=== PATIENT | female | born 2000 | race Caucasian/White ===

== ENCOUNTER 2022-01-10 06:22 | Inpatient (IN) ==
[2022-01-10] MEDS ORDERED: PITOCIN ONE ×3 (06:36→18:33)
[2022-01-10] MEDS ORDERED: AMPICILLIN VIAL 2 GRAM ONE (06:36)
[2022-01-10] MEDS ORDERED: BETADINE SOLN ONE (06:37)
[2022-01-10] MEDS ORDERED: D5 1/2 NS 1,000 mL + PITOCIN 20 UNITS/L IV 20 UNITS/1,000 ML BAG IV ONE (06:38)
[2022-01-10] MEDS ORDERED: D5 LR + PITOCIN 10 UNITS/L 10 UNITS/1,000 ML BAG IV ONE (06:38)
[2022-01-10] MEDS: D5 1/2 NS 1,000 ML 1,000 ML IV SCH ×2 (07:00→17:12)
--- NOTE | 2022-01-10 07:35 | DR.OB ---
OB Quick Note - Assessment/Plan Assessment/Plan: L&D 01/10/22 at 7:05am S-No complaint. O-Afebrile,VSS CGK=[id number] with good LTV, +accel, no decel. CTX=none CVX=1cm/50%/-1/VTX AROM with clear fluid. IUPC placed but FSE not able to be placed. A-IUP at 39 1/7 weeks for induction +GBS Rh- GERD P-Begin pitocin induction IV ABX in labor for +GBS Anticipate
[2022-01-10] MEDS ORDERED: PITOCIN IVP ONE (07:53)
[2022-01-10] MEDS ORDERED: NUBAIN INJ 200 MG VIAL MULTIDOSE IVP PRN (07:53)
[2022-01-10] MEDS ORDERED: REGLAN INJ 10 MG VIAL IVP PRN ×2 (07:53→19:20)
[2022-01-10] MEDS ORDERED: D5 LR + PITOCIN 10 UNITS/L 10 UNITS/1,000 ML BAG IV PRN (07:53)
[2022-01-10] MEDS ORDERED: AMPICILLIN VIAL 2 GRAM 2 G in NS 100 ML IV + SPIKE MINIBAG* 100 ML IV SCH (07:53)
[2022-01-10] MEDS ORDERED: PHENERGAN INJ 25 MG IM PRN ×2 (07:53→18:02)
[2022-01-10] MEDS ORDERED: MORPHINE SULFATE INJ 2 MG INJ IVP PRN (07:53)
[2022-01-10] MEDS: AMPICILLIN VIAL 1 GRAM 1 G in NS 50 ML IV + SPIKE MINIBAG* 50 ML IV SCH ×2 (07:57→10:30)
[2022-01-10] MEDS: D5 1/2 NS 1,000 ML 1,000 ML IV ONE (07:58)
[2022-01-10] MEDS: NS 100 ML IV 100 ML ONE ×2 (07:58→07:59)
[2022-01-10] MEDS ORDERED: REGLAN INJ 10 MG VIAL ONE ×2 (09:57→16:32)
[2022-01-10] MEDS ORDERED: STADOL INJ ONE ×2 (09:57→12:43)
[2022-01-10] MEDS: STADOL INJ IVP PRN ×2 (10:00→12:45)
[2022-01-10] MEDS ORDERED: NS 100 ML IV 100 ML ONE ×4 (10:22→16:33)
[2022-01-10] MEDS ORDERED: AMPICILLIN VIAL 1 GRAM ONE ×2 (10:22→14:50)
[2022-01-10] MEDS: VSL#3 PO SCH (11:31)
--- NOTE | 2022-01-10 12:23 | DR.OB ---
OB Quick Note - Assessment/Plan Assessment/Plan: L&D 01/10/22 at 12:15pm Pitocin=16mu/min. Ampicillin S-No complaint. O-Afebrile,VSS [id number] with good LTV, +accel, no decel. CTX=q 1 1/2 to 2 min., about 35-55mmHg CVX=1cm/50%/-1 IUPC replaced. A-IUP at 39 1/7 weeks for induction +GBS GERD Rh- P-Cont. pitocin induction and IV ABX in labor Anticipate
[2022-01-10] MEDS ORDERED: LR 1,000 ML IV 1,000 ML IV ONE ×2 (12:54→16:32)
[2022-01-10] MEDS ORDERED: FENTANYL VIAL INJ 100 mcg ONE ×2 (12:54→17:32)
[2022-01-10] MEDS ORDERED: NAROPIN EPIDURAL 0.2% 100 ML ONE (12:55)
[2022-01-10] MEDS ORDERED: EPHEDRINE SULFATE INJ ONE (13:10)
[2022-01-10] MEDS ORDERED: AMPICILLIN VIAL 1 GRAM 1 G in NS 50 ML IV 50 ML IV SCH (16:00)
[2022-01-10] MEDS ORDERED: ANCEF VIAL 1 GRAM ONE (16:32)
[2022-01-10] MEDS ORDERED: ZOFRAN INJ 4 MG VIAL ONE (16:32)
[2022-01-10] MEDS ORDERED: PEPCID 20 MG VIAL ONE (16:33)
--- NOTE | 2022-01-10 16:57 | DR.OB ---
OB Quick Note - Assessment/Plan Assessment/Plan: L&D 01/10/22 at 4:55pm Pitocin=20mu/min. Ampicillin S-No complaint. s/p epidural. O-Afebrile,VSS [id number] with good LTV, +accel, no decel. CTX=q 1 1/2 to 2 min., about 35-55mmHg CVX=1-2cm/50%/-1 (no change) A-IUP at 39 1/7 weeks with failure to dilate Rh- +GBS GERD P-To C/S
[2022-01-10] MEDS ORDERED: XYLOCAINE-MPF 2% ONE (17:09)
[2022-01-10] MEDS ORDERED: PRECEDEX INJ VIAL IVP ONE (17:13)
[2022-01-10] MEDS ORDERED: MORPHINE SULFATE INJ 10 MG ONE (17:41)
[2022-01-10] MEDS ORDERED: DILAUDID INJ IVP PRN (18:02)
[2022-01-10] MEDS ORDERED: ZOFRAN INJ 4 MG VIAL IVP PRN ×2 (18:02→19:20)
[2022-01-10] MEDS ORDERED: BENADRYL INJ 50 MG VIAL IVP PRN ×2 (18:02→19:20)
[2022-01-10] MEDS ORDERED: DILAUDID INJ ONE (18:10)
[2022-01-10] MEDS ORDERED: TORADOL 30 MG VIAL ONE (18:14)
[2022-01-10] MEDS ORDERED: VERSED ONE (18:19)
[2022-01-10] MEDS ORDERED: NARCAN INJ IVP PRN (19:20)
[2022-01-10] MEDS ORDERED: MYLICON TAB 80 MG CHEW PO PRN (19:20)
[2022-01-10] MEDS ORDERED: ADACEL or BOOSTRIX TDaP VACCINE IM ONE (19:20)
[2022-01-10] MEDS ORDERED: PERCOCET TAB 5/325 MG PO PRN (19:20)
[2022-01-10] MEDS ORDERED: HYPERRHO S/D (or RHOGAM) IM PRN (19:20)
[2022-01-10] MEDS ORDERED: D5 1/2 NS 1,000 ML 1,000 ML with PITOCIN 20 UNITS IV SCH ×2 (19:20)
[2022-01-10] MEDS ORDERED: TORADOL 30 MG VIAL IVP PRN (19:20)
[2022-01-11 05:09] LABS: HEMATOCRIT 21.2 % (36.0-47.0)
[2022-01-11 05:10] LABS: HEMOGLOBIN 7.1 g/dL (12.0-16.0)
[2022-01-11] MEDS ORDERED: MOTRIN TAB 800 MG PO PRN (07:35)
[2022-01-11] MEDS ORDERED: ADACEL or BOOSTRIX TDaP VACCINE IM ONE (09:00)
[2022-01-11] MEDS: PRENATAL PLUS PO SCH (09:11)
[2022-01-11] MEDS: VSL#3 PO SCH (09:11)
[2022-01-11] MEDS: COLACE CAP 100 MG PO SCH ×2 (09:12→21:13)
[2022-01-11] MEDS: PROTONIX TAB 40 MG PO SCH (09:12)
[2022-01-11] MEDS: PERCOCET TAB 5/325 MG PO PRN ×2 (10:16→14:20)
[2022-01-11] MEDS: BACTROBAN TOPICAL OINT TOP SCH (14:55)
[2022-01-11] MEDS ORDERED: NS 100 ML IV 100 ML ONE (16:58)
[2022-01-11] MEDS ORDERED: ANCEF VIAL 1 GRAM ONE (16:58)
[2022-01-11] MEDS ORDERED: LR 1,000 ML IV 1,000 ML IV ONE (17:00)
[2022-01-11] MEDS: FERROUS GLUCONATE PO SCH (18:00)
[2022-01-12] MEDS: BACTROBAN TOPICAL OINT TOP SCH ×2 (06:39→10:58)
[2022-01-12] MEDS: COLACE CAP 100 MG PO SCH (09:40)
[2022-01-12] MEDS: FERROUS GLUCONATE PO SCH (09:40)
[2022-01-12] MEDS: PROTONIX TAB 40 MG PO SCH (09:40)
[2022-01-12] MEDS: PRENATAL PLUS PO SCH (09:40)
[2022-01-12] MEDS: VSL#3 PO SCH (09:40)
[2022-01-12 09:44] VITALS: BP 136/86
[2022-01-12] MEDS: PERCOCET TAB 5/325 MG PO PRN (10:05)
== END 2022-01-12 12:10 | disposition home or self-care (01) | DRG 788 ==
LOC: LD 06:22 → MED/SURG 19:10
PROVIDERS: ADMIT Specialist; ATTEND Specialist
DX: Z37.0 Single live birth; O98.82 Other maternal infectious and parasitic diseases complicating childbirth; Z29.13 Encounter for prophylactic Rho(D) immune globulin; B95.1 Streptococcus, group B, as the cause of diseases classified elsewhere; K21.9 Gastro-esophageal reflux disease without esophagitis; O99.613 Diseases of the digestive system complicating pregnancy, third trimester; O62.0 Primary inadequate contractions; Z20.822 Contact with and (suspected) exposure to COVID-19; Z3A.39 39 weeks gestation of pregnancy